=== PATIENT | male | born 1965 | race African-American/Black ===

== ENCOUNTER 2019-07-23 04:22 | Inpatient (IN) | payer SELFPAY ==
[2019-07-23] MEDS ORDERED: Albuterol/Ipratropium 3.0-0.5 MG/3 ML Neb Soln ONE ×2 (04:35→08:15)
[2019-07-23] MEDS ORDERED: Albuterol/Ipratropium 3.0-0.5 MG/3 ML Neb Soln NEB ONE (04:38)
--- NOTE | 2019-07-23 04:38 | EDM.PDOC ---
ED HPI GENERAL MEDICAL PROBLEM - General Chief Complaint: Respiratory Problem Stated Complaint: SHORTNESS OF BREATH Time Seen by Provider: 07/23/19 04:37 Source of Information: Reports: Patient - History of Present Illness INITIAL COMMENTS - FREE TEXT/NARRATIVE: HISTORY AND PHYSICAL: History of present illness: [Patient with hypertension and CHF arrives with shortness of breath with audible wheezing No fever nausea vomiting chills sweats, denies chest pain headache dizziness palpitation Review of systems: As per history of present illness and below otherwise all systems reviewed and negative. Past medical history: As per history of present illness and as reviewed below otherwise noncontributory. Surgical history: As per history of present illness and as reviewed below otherwise noncontributory. Social history: No reported history of drug or alcohol abuse. Family history: As per history of present illness and as reviewed below otherwise noncontributory. Physical exam: HEENT: Atraumatic, normocephalic, pupils reactive, negative for conjunctival pallor or scleral icterus, mucous membranes moist, throat clear, neck supple, nontender, trachea midline. LunBilateral wheeze throughouteath sounds equal bilaterally, chest nontender. Heart: S1S2, regular, negative for clicks, rubs, or JVD. Abdomen: Soft, nondistended, nontender. Negative for masses or hepatosplenomegaly. Negative for costovertebral tenderness. Pelvis: Stable nontender. Genitourinary: Deferred. Rectal: Deferred. Extremities: Atraumatic, negative for cords or calf pain. Neurovascular unremarkable. Neuro: Awake, alert, oriented. Cranial nerves II through XII unremarkable. Cerebellum unremarkable. Motor and sensory unremarkable throughout. Exam nonfocal. Diagnostics: [CBC CMP UA troponin EKG chest 1 view ] Therapeutics: [Normal saline DuoNeb Solu-Medrol 2 Lasix 40 mg IV Aspirin Lovenox Vasotec ] Impression: [Short of breath CHF Renal insufficiency Chronic history of baseline] Definitive disposition and diagnosis as appropriate pending reevaluation and review of above. - Related Data Allergies Allergy/AdvReac Type Severity Reaction Status Date / Time No Known Allergies Allergy Verified 07/23/19 04:32 Home Meds: Home Meds Aspirin 81 mg PO DAILY 07/23/19 [History] Furosemide 40 mg PO BID 07/23/19 [History] Lisinopril 5 mg PO DAILY 07/23/19 [History] Meloxicam 7.5 mg PO DAILY 07/23/19 [History] Metoprolol Succinate 50 mg PO DAILY 07/23/19 [History] Potassium Chloride 20 meq PO DAILY 07/23/19 [History] hydrALAZINE [Apresoline] 50 mg PO Q8H 07/23/19 [History] ED ROS GENERAL - Review of Systems Review Of Systems: See Below ED EXAM, GENERAL - Physical Exam Exam: See Below Course - Vital Signs Last Recorded V/S: Last Vital Signs Temp 97 F 07/23/19 04:25 Pulse 72 07/23/19 04:54 Resp 25 H 07/23/19 04:54 BP 161/90 H 07/23/19 05:00 Pulse Ox 99 07/23/19 04:54 - Orders/Labs/Meds Orders: Active Orders 24 hr Category Date Time Status EKG Documentation Completion [RC] STAT Care 07/23/19 04:37 Active RT Aerosol Therapy [RC] ASDIRECTED Care 07/23/19 04:38 Active CULTURE BLOOD [BC] Stat Lab 07/23/19 04:55 Received CULTURE BLOOD [BC] Stat Lab 07/23/19 05:07 Received UA RFX CHUCKIE AND CULT IF INDIC [URIN] Stat Lab 07/23/19 04:36 Ordered Sodium Chloride 0.9% [Normal Saline] 1,000 ml Med 07/23/19 04:45 Active IV STAT Blood Culture x2 Reflex Set [OM.PC] Stat Oth 07/23/19 04:37 Ordered Medication Orders Sodium Chloride (Normal Saline) 1,000 mls @ 125 mls/hr IV STAT ELEN Last Admin: 07/23/19 04:42 Dose: 125 mls/hr Labs: Laboratory Tests 07/23/19 07/23/19 07/23/19 Range/Units 04:32 04:32 04:32 WBC 6.45 (4.0-11.0) K/uL RBC 6.77 H (4.50-5.90) M/uL Hgb 18.9 H (13.0-17.0) g/dL Hct 57.6 H (38.0-50.0) % MCV 85.1 (80.0-98.0) fL MCH 27.9 (27.0-32.0) pg MCHC 32.8 (31.0-37.0) g/dL RDW Std Deviation 50.5 (28.0-62.0) fl RDW Coeff of Sylvester 17 H (11.0-15.0) % Plt Count 228 (150-400) K/uL MPV 10.30 (7.40-12.00) fL Neut % (Auto) 49.1 (48.0-80.0) % Lymph % (Auto) 29.3 (16.0-40.0) % [place] % (Auto) 15.7 H (0.0-15.0) % Eos % (Auto) 5.0 (0.0-7.0) % Baso % (Auto) 0.9 (0.0-1.5) % Neut # (Auto) 3.2 (1.4-5.7) K/uL Lymph # (Auto) 1.9 (0.6-2.4) K/uL [place] # (Auto) 1.0 H (0.0-0.8) K/uL Eos # (Auto) 0.3 (0.0-0.7) K/uL Baso # (Auto) 0.1 (0.0-0.1) K/uL Nucleated RBC % 0.5 /100WBC Nucleated RBCs # 0 K/uL Sodium 140 (136-148) mmol/L Potassium 4.7 (3.5-5.1) mmol/L Chloride 103 (98-107) mmol/L Carbon Dioxide 32.3 H (21.0-32.0) mmol/L BUN 22 H (7.0-18.0) mg/dL Creatinine 1.6 H (0.8-1.3) mg/dL Est Cr Clr Drug Dosing 52.78 mL/min Estimated GFR (MDRD) 45.3 ml/min Glucose 102 (74-106) mg/dL Calcium 8.7 (8.5-10.1) mg/dL Total Bilirubin 1.6 H (0.2-1.0) mg/dL AST 60 H (15-37) IU/L ALT 53 (14-63) IU/L Alkaline Phosphatase 55 (46-116) U/L Troponin I 0.335 H* (0.000-0.056) ng/mL B-Natriuretic Peptide 1197 H (<100) PG/ML Total Protein 6.7 (6.4-8.2) g/dL Albumin 3.7 (3.4-5.0) g/dL Globulin 3.0 (2.6-4.0) g/dL Albumin/Globulin Ratio 1.2 (0.9-1.6) Meds: Medications Generic Name Dose Route Start Last Admin Trade Name Emily PRN Reason Stop Dose Admin Sodium Chloride 1,000 mls @ 125 mls/hr 07/23/19 04:45 07/23/19 04:42 Normal Saline IV 125 mls/hr STAT ELEN Administration Discontinued Medications Generic Name Dose Route Start Last Admin Trade Name Joeq PRN Reason Stop Dose Admin Albuterol/Ipratropium 3 ml 07/23/19 04:38 07/23/19 04:42 Duoneb 3.0-0.5 Mg/3 Ml NEB 07/23/19 04:39 3 ml ONETIME ONE Administration Albuterol/Ipratropium Confirm 07/23/19 04:35 07/23/19 04:43 Duoneb 3.0-0.5 Mg/3 Ml Administered 07/23/19 04:36 Not Given Dose 3 ml .ROUTE .STK-MED ONE Aspirin 324 mg 07/23/19 05:19 Aspirin PO 07/23/19 05:20 ONETIME ONE Enalaprilat 0.625 mg 07/23/19 04:55 07/23/19 05:00 Vasotec Iv IVPUSH 07/23/19 04:56 0.625 mg NOW STA Administration Enalaprilat 0.625 mg 07/23/19 05:02 07/23/19 05:00 Vasotec Iv IVPUSH 07/23/19 05:03 Not Given NOW STA Enoxaparin Sodium 100 mg 07/23/19 05:19 Lovenox SUBCUT 07/23/19 05:20 ONETIME ONE Furosemide 40 mg 07/23/19 04:53 07/23/19 05:01 Lasix IVPUSH 07/23/19 04:54 40 mg NOW ONE Administration Lorazepam 1 mg 07/23/19 04:54 07/23/19 05:01 Ativan IVPUSH 07/23/19 04:55 1 mg ONETIME ONE Administration Methylprednisolone Sodium Succinate Confirm 07/23/19 04:36 07/23/19 04:43 Solu-Medrol Administered 07/23/19 04:37 Not Given Dose 125 mg .ROUTE .STK-MED ONE Methylprednisolone Sodium Succinate 125 mg 07/23/19 04:43 07/23/19 04:44 Solu-Medrol IVPUSH 07/23/19 04:44 125 mg ONETIME ONE Administration Methylprednisolone Sodium Succinate 125 mg 07/23/19 05:22 Solu-Medrol IVPUSH 07/23/19 05:23 ONETIME ONE Departure - Departure Time of Disposition: 05:28 Disposition: Admitted As Inpatient 65 Condition: Poor Clinical Impression: CHF (congestive heart failure), Elevated troponin, Renal insufficiency - Discharge Information Forms: ED Department Discharge - My Orders Last 24 Hours: My Active Orders 07/23/19 04:36 UA RFX CHUCKIE AND CULT IF INDIC [URIN] Stat 07/23/19 04:37 EKG Documentation Completion [RC] STAT Blood Culture x2 Reflex Set [OM.PC] Stat 07/23/19 04:38 RT Aerosol Therapy [RC] ASDIRECTED 07/23/19 04:45 Sodium Chloride 0.9% [Normal Saline] 1,000 ml IV STAT 07/23/19 04:55 CULTURE BLOOD [BC] Stat 07/23/19 05:07 CULTURE BLOOD [BC] Stat - Assessment/Plan Last 24 Hours: My Active Orders 07/23/19 04:36 UA RFX CHUCKIE AND CULT IF INDIC [URIN] Stat 07/23/19 04:37 EKG Documentation Completion [RC] STAT Blood Culture x2 Reflex Set [OM.PC] Stat 07/23/19 04:38 RT Aerosol Therapy [RC] ASDIRECTED 07/23/19 04:45 Sodium Chloride 0.9% [Normal Saline] 1,000 ml IV STAT 07/23/19 04:55 CULTURE BLOOD [BC] Stat 07/23/19 05:07 CULTURE BLOOD [BC] Stat
[2019-07-23] MEDS: methylPREDNISolone Sodium Succinate 125 MG/2 ML SDV ONE ×2 (04:42→04:43)
[2019-07-23] MEDS ORDERED: methylPREDNISolone Sodium Succinate 125 MG/2 ML SDV IVPUSH ONE ×2 (04:43→05:22)
[2019-07-23] MEDS ORDERED: Sodium Chloride 0.9% 1,000 ML IV SCH (04:45)
[2019-07-23] MEDS ORDERED: Furosemide 40 MG/4 ML VIAL IVPUSH ONE (04:53)
[2019-07-23] MEDS ORDERED: LORazepam 2 MG/ML SDV IVPUSH ONE (04:54)
[2019-07-23] MEDS ORDERED: Enalaprilat 1.25 MG/ML SDV IVPUSH STA ×2 (04:55→05:02)
[2019-07-23 05:10] LABS: CARBON DIOXIDE,CO2 32.3 mmol/L (21.0-32.0); POTASSIUM,K 4.7 mmol/L (3.5-5.1)
[2019-07-23] MEDS ORDERED: Aspirin 81 MG Tab.Chew PO ONE (05:19)
[2019-07-23] MEDS ORDERED: Enoxaparin 100 MG/1 ML Syringe SUBCUT ONE (05:19)
--- NOTE | 2019-07-23 05:21 | CR ---
INDICATION: Pain and shortness of breath TECHNIQUE: Chest 1 view COMPARISON: None FINDINGS: Cardiovascular and mediastinum: Cardiomegaly with mild aortic tortuosity. Pulmonary vascular distension. Calcified right paratracheal lymph nodes. Lungs and pleural spaces: Lungs are clear. No sign of infiltrate or mass. No sign of pleural effusion. No pneumothorax. Bones and soft tissues: No significant findings. IMPRESSION: Cardiomegaly with pulmonary cephalization without focal consolidation. Dictated by Joshua Maza MD @ Jul 23 2019 5:18AM Signed by Dr. Joshua Maza @ Jul 23 2019 5:19AM
[2019-07-23] MEDS ORDERED: Albuterol/Ipratropium 3.0-0.5 MG/3 ML Neb Soln NEB STA (08:08)
[2019-07-23] MEDS: Furosemide 40 MG/4 ML VIAL IVPUSH SCH ×2 (09:05→20:53)
--- NOTE | 2019-07-23 11:05 | PCM.HP.2 ---
H&P History of Present Illness - General Date of Service: 07/23/19 Admit Problem/Dx: Admission Diagnosis/Problem Admission Diagnosis/Problem CHF, Congestive heart failure - History of Present Illness Initial Comments - Free Text/Narative: 53 y/o male with history of CHF, hypertension who presented to the ER complaining of shortness of breath and anxiety. His chest xray showed vascular congestion and cardiomegaly. He was given lasix IV once and Ativan IV once in the ER for anxiety. In addition, initial troponin was mildly elevated 0.3. Patient denying and chest pain. EKG did not show any ST changes. When I saw the patient in the morning, I was informed that the patient was obtunded needing sternal rub to wake up. I evaluated the patient and he did seemed obtunded. He was on NC 2 L with sats in high 90's. He had a systolic murmur was well. He denied any illegal drug use. Does not smoke. No alcohol. He stated that he was recently seen in [place] at [facility] about 2 weeks ago for similar complaint and was later discharged home on lasix and other meds. He states he has been taking his meds as indicated. Initially, the patient was reluctant to be transferred to the ICU unit, however, he later agreed to get transferred to the ICU unit. - Related Data Allergies/Adverse Reactions: Allergies Allergy/AdvReac Type Severity Reaction Status Date / Time No Known Allergies Allergy Verified 07/23/19 04:32 Home Medications: Home Meds Aspirin 81 mg PO DAILY 07/23/19 [History] Furosemide 40 mg PO BID 07/23/19 [History] Lisinopril 5 mg PO DAILY 07/23/19 [History] Meloxicam 7.5 mg PO DAILY 07/23/19 [History] Metoprolol Succinate 50 mg PO DAILY 07/23/19 [History] Potassium Chloride 20 meq PO DAILY 07/23/19 [History] hydrALAZINE [Apresoline] 50 mg PO Q8H 07/23/19 [History] Past Medical History HEENT History: Reports: None Cardiovascular History: Reports: Heart Failure, Hypertension, Other (See Below) Other Cardiovascular History: Aortic Valve Leak Respiratory History: Reports: None Gastrointestinal History: Reports: None Genitourinary History: Reports: None Musculoskeletal History: Reports: None Neurological History: Reports: None Psychiatric History: Reports: None Endocrine/Metabolic History: Reports: None 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 Exam - Exam Exam: See Below - Vital Signs Vital Signs: Last Vital Signs Temp 36.8 C 07/23/19 06:10 Pulse 70 07/23/19 08:15 Resp 24 H 07/23/19 08:15 BP 179/93 H 07/23/19 06:10 Pulse Ox 95 07/23/19 08:15 Weight: 104.325 kg - Exam General: Cooperative, Sedated HEENT: Conjunctiva Clear, Other (dry oral mucosa) Lungs: Other (expiratory wheezing bilatereally with crackles. Can hear systolic murmur.) Cardiovascular: Regular Rate, Regular Rhythm, Systolic Murmur GI/Abdominal Exam: Soft, Non-Tender, No Distention Extremities: Other (2+ pitting edema up to knees.) Skin: Warm, Dry - Patient Data Lab Results Last 24 hrs: Laboratory Results - last 24 hr 07/23/19 07/23/19 07/23/19 Range/Units 04:32 04:32 04:32 WBC 6.45 (4.0-11.0) K/uL RBC 6.77 H (4.50-5.90) M/uL Hgb 18.9 H (13.0-17.0) g/dL Hct 57.6 H (38.0-50.0) % MCV 85.1 (80.0-98.0) fL MCH 27.9 (27.0-32.0) pg MCHC 32.8 (31.0-37.0) g/dL RDW Std Deviation 50.5 (28.0-62.0) fl RDW Coeff of Sylvester 17 H (11.0-15.0) % Plt Count 228 (150-400) K/uL MPV 10.30 (7.40-12.00) fL Neut % (Auto) 49.1 (48.0-80.0) % Lymph % (Auto) 29.3 (16.0-40.0) % [place] % (Auto) 15.7 H (0.0-15.0) % Eos % (Auto) 5.0 (0.0-7.0) % Baso % (Auto) 0.9 (0.0-1.5) % Neut # (Auto) 3.2 (1.4-5.7) K/uL Lymph # (Auto) 1.9 (0.6-2.4) K/uL [place] # (Auto) 1.0 H (0.0-0.8) K/uL Eos # (Auto) 0.3 (0.0-0.7) K/uL Baso # (Auto) 0.1 (0.0-0.1) K/uL Nucleated RBC % 0.5 /100WBC Nucleated RBCs # 0 K/uL ABG pH (7.35-7.45) ABG pCO2 (35-45) mmHG ABG pO2 (75-100) mmHG ABG HCO3 (22-26) mEq/L ABG Total CO2 ABG Base Excess (-2.0-2.0) Sodium 140 (136-148) mmol/L Potassium 4.7 (3.5-5.1) mmol/L Chloride 103 (98-107) mmol/L Carbon Dioxide 32.3 H (21.0-32.0) mmol/L BUN 22 H (7.0-18.0) mg/dL Creatinine 1.6 H (0.8-1.3) mg/dL Est Cr Clr Drug Dosing 52.78 mL/min Estimated GFR (MDRD) 45.3 ml/min Glucose 102 (74-106) mg/dL Calcium 8.7 (8.5-10.1) mg/dL Total Bilirubin 1.6 H (0.2-1.0) mg/dL AST 60 H (15-37) IU/L ALT 53 (14-63) IU/L Alkaline Phosphatase 55 (46-116) U/L Troponin I 0.335 H* (0.000-0.056) ng/mL B-Natriuretic Peptide 1197 H (<100) PG/ML Total Protein 6.7 (6.4-8.2) g/dL Albumin 3.7 (3.4-5.0) g/dL Globulin 3.0 (2.6-4.0) g/dL Albumin/Globulin Ratio 1.2 (0.9-1.6) Urine Color Urine Appearance Urine pH (5.0-8.0) Ur Specific [place] (1.001-1.035) Urine Protein (NEGATIVE) mg/dL Urine Glucose (UA) (NEGATIVE) mg/dL Urine Ketones (NEGATIVE) mg/dL Urine Occult Blood (NEGATIVE) Urine Nitrite (NEGATIVE) Urine Bilirubin (NEGATIVE) Urine Urobilinogen (<2.0) EU/dL Ur Leukocyte Esterase (NEGATIVE) 07/23/19 07/23/19 07/23/19 Range/Units 05:35 08:34 08:47 WBC (4.0-11.0) K/uL RBC (4.50-5.90) M/uL Hgb (13.0-17.0) g/dL Hct (38.0-50.0) % MCV (80.0-98.0) fL MCH (27.0-32.0) pg MCHC (31.0-37.0) g/dL RDW Std Deviation (28.0-62.0) fl RDW Coeff of Sylvester (11.0-15.0) % Plt Count (150-400) K/uL MPV (7.40-12.00) fL Neut % (Auto) (48.0-80.0) % Lymph % (Auto) (16.0-40.0) % [place] % (Auto) (0.0-15.0) % Eos % (Auto) (0.0-7.0) % Baso % (Auto) (0.0-1.5) % Neut # (Auto) (1.4-5.7) K/uL Lymph # (Auto) (0.6-2.4) K/uL [place] # (Auto) (0.0-0.8) K/uL Eos # (Auto) (0.0-0.7) K/uL Baso # (Auto) (0.0-0.1) K/uL Nucleated RBC % /100WBC Nucleated RBCs # K/uL ABG pH 7.388 (7.35-7.45) ABG pCO2 53 H (35-45) mmHG ABG pO2 27 L* (75-100) mmHG ABG HCO3 32 H (22-26) mEq/L ABG Total CO2 27.1 ABG Base Excess 4.7 H (-2.0-2.0) Sodium (136-148) mmol/L Potassium (3.5-5.1) mmol/L Chloride (98-107) mmol/L Carbon Dioxide (21.0-32.0) mmol/L BUN (7.0-18.0) mg/dL Creatinine (0.8-1.3) mg/dL Est Cr Clr Drug Dosing mL/min Estimated GFR (MDRD) ml/min Glucose (74-106) mg/dL Calcium (8.5-10.1) mg/dL Total Bilirubin (0.2-1.0) mg/dL AST (15-37) IU/L ALT (14-63) IU/L Alkaline Phosphatase (46-116) U/L Troponin I 0.336 H* (0.000-0.056) ng/mL B-Natriuretic Peptide (<100) PG/ML Total Protein (6.4-8.2) g/dL Albumin (3.4-5.0) g/dL Globulin (2.6-4.0) g/dL Albumin/Globulin Ratio (0.9-1.6) Urine Color YELLOW Urine Appearance CLEAR Urine pH 6.5 (5.0-8.0) Ur Specific [place] 1.010 (1.001-1.035) Urine Protein NEGATIVE (NEGATIVE) mg/dL Urine Glucose (UA) NEGATIVE (NEGATIVE) mg/dL Urine Ketones NEGATIVE (NEGATIVE) mg/dL Urine Occult Blood NEGATIVE (NEGATIVE) Urine Nitrite NEGATIVE (NEGATIVE) Urine Bilirubin NEGATIVE (NEGATIVE) Urine Urobilinogen 0.2 (<2.0) EU/dL Ur Leukocyte Esterase NEGATIVE (NEGATIVE) Result Diagrams: 07/23/19 04:32 07/23/19 04:32 Problem List Initiated/Reviewed/Updated: Yes Orders Last 24hrs: Active Orders 24 hr Category Date Time Status Admission Status [Patient Status] [ADT] Routine ADT 07/23/19 08:19 Active Bedrest Bathroom Privileges [RC] ASDIRECTED Care 07/23/19 08:15 Active Daily Weight [Height and Weight] [RC] DAILY Care 07/23/19 08:27 Active EKG Documentation Completion [RC] STAT Care 07/23/19 08:26 Active Intake and Output Strict [RC] Q12H Care 07/23/19 08:28 Active Oxygen Therapy [RC] PRN Care 07/23/19 08:15 Active RT Aerosol Therapy [RC] ASDIRECTED Care 07/23/19 04:38 Active Supplemental O2 [Oxygen Therapy] [RC] ASDIRECTED Care 07/23/19 07:49 Active Telemetry Monitoring [Cardiac Monitoring] [RC] Q8H Care 07/23/19 05:50 Active VTE/DVT Education [RC] PER UNIT ROUTINE Care 07/23/19 08:15 Active Vital Signs [RC] Q4H Care 07/23/19 08:15 Active Fluid Restriction [DIET] Diet 07/23/19 Lunch Active Heart Healthy Diet [DIET] Diet 07/23/19 Breakfast Active CULTURE BLOOD [BC] Stat Lab 07/23/19 04:55 Received CULTURE BLOOD [BC] Stat Lab 07/23/19 05:07 Received TROPONIN I [CHEM] Q6H Lab 07/23/19 10:40 Received TROPONIN I [CHEM] Q6H Lab 07/23/19 16:00 Ordered TROPONIN I [CHEM] Q6H Lab 07/23/19 22:00 Ordered Furosemide [Lasix] Med 07/23/19 09:00 Active 40 mg IVPUSH BID Blood Culture x2 Reflex Set [OM.PC] Stat Oth 07/23/19 04:37 Ordered Pulse Oximetry Continuous Monitoring [OM.PC] Routine Oth 07/23/19 07:50 Ordered Resuscitation Status Routine Resus Stat 07/23/19 08:15 Ordered Medication Orders Furosemide (Lasix) 40 mg IVPUSH BID ELEN Last Admin: 07/23/19 09:05 Dose: 40 mg Assessment/Plan Comment:: A: 1. Acute CHF exacerbation 2. Elevated troponin likely due to above 3. Acute hypoxemic respiratory failure 4. Acute metabolic encephalopathy 5. Hypertension P: Not sure what could be causing his encephalopathy. Likely secondary to Ativan dose received in the ER. ABG showed hypoxemia of 27. CO2 low 50's. Will need to repeat ABG tomorrow. Will continue to diurese with lasix 40 mg IV BID for now. Strict I/O and daily weights, fluid restriction. Will continue to trend troponins. Currently, trending down. Suspect elevated troponins secondary to acute on chronic CHF exacerbation. Will get outside medical records from [facility] in [place].
--- NOTE | 2019-07-23 13:43 | CT ---
CT abdomen Technique: Multiple axial sections were obtained from above the dome of the diaphragm inferiorly to the iliac crests. Intravenous contrast was not utilized. Oral contrast also not utilized. Comparison: No prior abdominal imaging. Findings: Visualized lung bases show nothing acute. Noncontrast appearance of the liver shows a small peripheral calcification anteriorly. No additional abnormality is appreciated within the liver. Spleen shows calcifications. No splenomegaly is seen. Adrenal glands show no nodule. Pancreas shows no discrete abnormality. Gallbladder contains no calcified gallstones. Kidneys show no abnormal calcifications or hydronephrosis. Aorta shows no aneurysm. No retroperitoneal adenopathy is seen. No mesenteric abnormalities are appreciated. Bone window settings were reviewed which appear within normal limits for the patient's age. Impression: 1. Calcified granulomas within the spleen as well as anteriorly within the liver. 2. Nothing acute is seen on noncontrast CT study of the abdomen. Diagnostic code #2 MTDD
--- NOTE | 2019-07-23 13:49 | CT ---
CT chest Technique: Multiple axial sections through the chest were. Intravenous contrast was not utilized. Comparison: No prior chest imaging. Findings: Calcified lymph node is noted within the right paratracheal region and within the right hilar region. No adenopathy is seen. Minimal coronary artery calcification is seen. Heart size at the upper limits of normal. No pericardial thickening is seen. No axillary adenopathy is identified. Lungs are clear with no acute parenchymal change. There is an incidental calcified granuloma within the right upper lung. No pleural effusions or pneumothorax is seen. Motion artifact is seen. Within this limitation, no discrete rib fracture is appreciated. No definite acute abnormality is seen within the thoracic spine. Impression: 1. Motion artifact. 2. Calcified lymph nodes compatible with previous granulomatous exposure. Small calcified granuloma within the right upper lung. 3. Other findings believed to be incidental. Nothing acute is appreciated on noncontrast chest CT. Diagnostic code #2 MTDD
--- NOTE | 2019-07-23 14:59 | PN ---
THC Physician - Brief Progress [id number]/24/2019 14:21[facility] Ariadne Barnes, RAINE [facility] - MWN JULISSAMIMI ROCA Date of Service 07/23/2019 14:21HPI/Events of Note eICU Admit NotePt is a 53 yo M presenting to the ED with c/o EVANGELIST and Anxiety. PMH includes CH F and HTN. In the ED he was given Lasix and Nebs/Solumedrol with noted improvement. He was then subse quently given a dose of Ativan for his Anxiety and started having apenic spells, so he was admitted t o the ICU. He also underwent a CT of the Abdomen and Chest that both displayed no acute findings or s ignificant abnormalities. He is currently resting comfortably in bed in NAD with stable VS on 3 L NC. He is undergoing a 2D Echo at the moment and there is concern that he has a valvular issue. Pending the final results, we will possibly f/u with Cardio. Case was discussed with his bedside nurse Darron church. eICU Recommendations:1) Continue Diuresis2) Consider BIPAP if he decompensates again3) Trend tro ps4) PRN Electrolyte replacement5) Await final 2D Echo read6) Possible Cardio Consult if valvular iss ues7) GI/DVT prophylaxisThank you for allowing us to participate in the care of your patient.Interven tions Major-Hypoxemia - evaluation and [id number] therapies (e.g. VTE, beta cammie, etc.), Communication with other healthcare providers and/or family, Hypervolemia - evaluati on and management
[2019-07-23] MEDS ORDERED: Magnesium Sulfate/Water 2 GM in Premix Bag 1 BAG IV ONE (17:29)
[2019-07-23] MEDS ORDERED: Enoxaparin 40 MG/0.4 ML Syringe SUBCUT SCH (18:15)
[2019-07-24] MEDS ORDERED: Albuterol 0.083% 2.5 MG/3 ML Neb Soln NEB PRN (00:25)
[2019-07-24] MEDS: Albuterol/Ipratropium 3.0-0.5 MG/3 ML Neb Soln NEB SCH ×7 (00:35→23:23)
[2019-07-24 06:28] LABS: POTASSIUM,K 4.8 mmol/L (3.5-5.1)
[2019-07-24] MEDS: Aspirin 81 MG Tab.Chew PO SCH (08:52)
[2019-07-24] MEDS: Furosemide 40 MG/4 ML VIAL IVPUSH SCH ×2 (08:52→21:34)
[2019-07-24] MEDS ORDERED: methylPREDNISolone Sodium Succinate 125 MG/2 ML SDV IVPUSH SCH (09:00)
[2019-07-24] MEDS: hydrALAZINE 25 MG Tab PO SCH ×3 (09:04→23:23)
--- NOTE | 2019-07-24 11:24 | PN ---
THC Physician - Brief Progress [id number]/25/2019 11:22[facility] Ariadne waller [place] - CJ (JEOVANNY) - MIMI POOLE JRDate of Service 07/24/2019 11:22HPI/Events of Note eICU follow-up notePatient had significantly improved from yesterdayHe is sitting in chair, a ppears comfortable without acute distressHemodynamically stable, SPO2 95% on room airCase [facility]-patient status is changed to MedSurg with plans to transfer out of ICU today.In terventions Minor-Communication with other healthcare providers and/or family
--- NOTE | 2019-07-24 14:28 | PCM.PN ---
<Branden Self - Last Filed: 07/24/19 14:20> - General Info Date of Service: 07/24/19 Subjective Update: No acute events overnight. Afebrile. Denies chest pain, dyspnea. States he slept well overnight. - Patient Data Vitals - Most Recent: Last Vital Signs Temp 36.4 C 07/24/19 08:00 Pulse 76 07/24/19 11:00 Resp 15 07/24/19 11:00 BP 159/66 H 07/24/19 11:00 Pulse Ox 94 L 07/24/19 11:00 Weight - Most Recent: 103.9 kg I&O - Last 24 Hours: Intake & Output 07/23/19 07/24/19 07/24/19 22:59 06:59 14:59 Intake Total 900 850 Output Total 2225 1500 Balance -1325 -650 Lab Results Last 24 Hours: Laboratory Results - last 24 hr 07/23/19 07/23/19 07/24/19 Range/Units 16:09 22:12 05:55 WBC 13.78 H (4.0-11.0) K/uL RBC 6.33 H (4.50-5.90) M/uL Hgb 17.5 H (13.0-17.0) g/dL Hct 53.3 H (38.0-50.0) % MCV 84.2 (80.0-98.0) fL MCH 27.6 (27.0-32.0) pg MCHC 32.8 (31.0-37.0) g/dL RDW Std Deviation 49.4 (28.0-62.0) fl RDW Coeff of Sylvester 16 H (11.0-15.0) % Plt Count 238 (150-400) K/uL MPV 10.60 (7.40-12.00) fL Neut % (Auto) 80.4 H (48.0-80.0) % Lymph % (Auto) 9.1 L (16.0-40.0) % Barnes % (Auto) 10.4 (0.0-15.0) % Eos % (Auto) 0.0 (0.0-7.0) % Baso % (Auto) 0.1 (0.0-1.5) % Neut # (Auto) 11.1 H (1.4-5.7) K/uL Lymph # (Auto) 1.3 (0.6-2.4) K/uL Barnes # (Auto) 1.4 H (0.0-0.8) K/uL Eos # (Auto) 0.0 (0.0-0.7) K/uL Baso # (Auto) 0.0 (0.0-0.1) K/uL Nucleated RBC % 0.0 /100WBC Nucleated RBCs # 0 K/uL Sodium (136-148) mmol/L Potassium (3.5-5.1) mmol/L Chloride (98-107) mmol/L Carbon Dioxide (21.0-32.0) mmol/L BUN (7.0-18.0) mg/dL Creatinine (0.8-1.3) mg/dL Est Cr Clr Drug Dosing mL/min Estimated GFR (MDRD) ml/min Glucose (74-106) mg/dL Calcium (8.5-10.1) mg/dL Magnesium (1.8-2.4) mg/dL Total Bilirubin (0.2-1.0) mg/dL AST (15-37) IU/L ALT (14-63) IU/L Alkaline Phosphatase (46-116) U/L Troponin I 0.264 H* 0.205 H* (0.000-0.056) ng/mL B-Natriuretic Peptide (<100) PG/ML Total Protein (6.4-8.2) g/dL Albumin (3.4-5.0) g/dL Globulin (2.6-4.0) g/dL Albumin/Globulin Ratio (0.9-1.6) Triglycerides (0-200) mg/dL Cholesterol (50-200) mg/dL LDL Cholesterol, Calc (60-180) mg/dL VLDL Cholesterol (5-55) mg/dL HDL Cholesterol (40-60) mg/dL Cholesterol/HDL Ratio (3.3-6.0) TSH 3rd Generation (0.36-3.74) uIU/mL 07/24/19 07/24/19 07/24/19 Range/Units 05:55 05:55 05:55 WBC (4.0-11.0) K/uL RBC (4.50-5.90) M/uL Hgb (13.0-17.0) g/dL Hct (38.0-50.0) % MCV (80.0-98.0) fL MCH (27.0-32.0) pg MCHC (31.0-37.0) g/dL RDW Std Deviation (28.0-62.0) fl RDW Coeff of Sylvester (11.0-15.0) % Plt Count (150-400) K/uL MPV (7.40-12.00) fL Neut % (Auto) (48.0-80.0) % Lymph % (Auto) (16.0-40.0) % Barnes % (Auto) (0.0-15.0) % Eos % (Auto) (0.0-7.0) % Baso % (Auto) (0.0-1.5) % Neut # (Auto) (1.4-5.7) K/uL Lymph # (Auto) (0.6-2.4) K/uL Barnes # (Auto) (0.0-0.8) K/uL Eos # (Auto) (0.0-0.7) K/uL Baso # (Auto) (0.0-0.1) K/uL Nucleated RBC % /100WBC Nucleated RBCs # K/uL Sodium 141 (136-148) mmol/L Potassium 4.8 (3.5-5.1) mmol/L Chloride 103 (98-107) mmol/L Carbon Dioxide 32.0 (21.0-32.0) mmol/L BUN 24 H (7.0-18.0) mg/dL Creatinine 1.5 H (0.8-1.3) mg/dL Est Cr Clr Drug Dosing 56.30 mL/min Estimated GFR (MDRD) 59.1 ml/min Glucose 118 H (74-106) mg/dL Calcium 8.5 (8.5-10.1) mg/dL Magnesium 2.2 (1.8-2.4) mg/dL Total Bilirubin 1.1 H (0.2-1.0) mg/dL AST 38 H (15-37) IU/L ALT 42 (14-63) IU/L Alkaline Phosphatase 49 (46-116) U/L Troponin I 0.212 H* (0.000-0.056) ng/mL B-Natriuretic Peptide 706 H (<100) PG/ML Total Protein 6.0 L (6.4-8.2) g/dL Albumin 3.1 L (3.4-5.0) g/dL Globulin 2.9 (2.6-4.0) g/dL Albumin/Globulin Ratio 1.1 (0.9-1.6) Triglycerides (0-200) mg/dL Cholesterol (50-200) mg/dL LDL Cholesterol, Calc (60-180) mg/dL VLDL Cholesterol (5-55) mg/dL HDL Cholesterol (40-60) mg/dL Cholesterol/HDL Ratio (3.3-6.0) TSH 3rd Generation 0.55 (0.36-3.74) uIU/mL 07/24/19 Range/Units 05:55 WBC (4.0-11.0) K/uL RBC (4.50-5.90) M/uL Hgb (13.0-17.0) g/dL Hct (38.0-50.0) % MCV (80.0-98.0) fL MCH (27.0-32.0) pg MCHC (31.0-37.0) g/dL RDW Std Deviation (28.0-62.0) fl RDW Coeff of Sylvester (11.0-15.0) % Plt Count (150-400) K/uL MPV (7.40-12.00) fL Neut % (Auto) (48.0-80.0) % Lymph % (Auto) (16.0-40.0) % Barnes % (Auto) (0.0-15.0) % Eos % (Auto) (0.0-7.0) % Baso % (Auto) (0.0-1.5) % Neut # (Auto) (1.4-5.7) K/uL Lymph # (Auto) (0.6-2.4) K/uL Barnes # (Auto) (0.0-0.8) K/uL Eos # (Auto) (0.0-0.7) K/uL Baso # (Auto) (0.0-0.1) K/uL Nucleated RBC % /100WBC Nucleated RBCs # K/uL Sodium (136-148) mmol/L Potassium (3.5-5.1) mmol/L Chloride (98-107) mmol/L Carbon Dioxide (21.0-32.0) mmol/L BUN (7.0-18.0) mg/dL Creatinine (0.8-1.3) mg/dL Est Cr Clr Drug Dosing mL/min Estimated GFR (MDRD) ml/min Glucose (74-106) mg/dL Calcium (8.5-10.1) mg/dL Magnesium (1.8-2.4) mg/dL Total Bilirubin (0.2-1.0) mg/dL AST (15-37) IU/L ALT (14-63) IU/L Alkaline Phosphatase (46-116) U/L Troponin I (0.000-0.056) ng/mL B-Natriuretic Peptide (<100) PG/ML Total Protein (6.4-8.2) g/dL Albumin (3.4-5.0) g/dL Globulin (2.6-4.0) g/dL Albumin/Globulin Ratio (0.9-1.6) Triglycerides 69 (0-200) mg/dL Cholesterol 130 (50-200) mg/dL LDL Cholesterol, Calc 80 (60-180) mg/dL VLDL Cholesterol 13 (5-55) mg/dL HDL Cholesterol 36 L (40-60) mg/dL Cholesterol/HDL Ratio 3.6 (3.3-6.0) TSH 3rd Generation (0.36-3.74) uIU/mL Jamin Results Last 24 Hours: Microbiology 07/23/19 05:07 Aerobic Blood Culture - Preliminary Blood - Venous - Lab Draw NO GROWTH AFTER 1 DAY Anaerobic Blood Culture - Preliminary NO GROWTH AFTER 1 DAY 07/23/19 04:55 Aerobic Blood Culture - Preliminary Blood - Venous NO GROWTH AFTER 1 DAY Anaerobic Blood Culture - Preliminary NO GROWTH AFTER 1 DAY Med Orders - Current: Current Medications Albuterol (Proventil Neb Soln) 2.5 mg NEB Q2H PRN PRN Reason: Dyspnea Albuterol/Ipratropium (Duoneb 3.0-0.5 Mg/3 Ml) 3 ml NEB Q4HRRT [facility] Last Admin: 07/24/19 13:32 Dose: 3 ml Aspirin (Aspirin) 81 mg PO DAILY [facility] Last Admin: 07/24/19 08:52 Dose: 81 mg Furosemide (Lasix) 40 mg IVPUSH BID [facility] [place] Last Admin: 07/24/19 08:52 Dose: 40 mg Heparin Sodium (Porcine) (Heparin Sodium) 5,000 units SUBCUT Q8H [facility] Hydralazine HCl (Apresoline) 50 mg PO Q8H [facility] Last Admin: 07/24/19 09:04 Dose: 50 mg Discontinued Medications Albuterol/Ipratropium (Duoneb 3.0-0.5 Mg/3 Ml) 3 ml NEB ONETIME ONE Stop: 07/23/19 04:39 Last Admin: 07/23/19 04:42 Dose: 3 ml Albuterol/Ipratropium (Duoneb 3.0-0.5 Mg/3 Ml) Confirm Administered Dose 3 ml .ROUTE .STK-MED ONE Stop: 07/23/19 04:36 Last Admin: 07/23/19 04:43 Dose: Not Given Albuterol/Ipratropium (Duoneb 3.0-0.5 Mg/3 Ml) 3 ml NEB ONETIME STA Stop: 07/23/19 08:09 Last Admin: 07/23/19 08:19 Dose: 3 ml Albuterol/Ipratropium (Duoneb 3.0-0.5 Mg/3 Ml) Confirm Administered Dose 3 ml .ROUTE .STK-MED ONE Stop: 07/23/19 08:16 Last Admin: 07/23/19 08:19 Dose: Not Given Aspirin (Aspirin) 324 mg PO ONETIME ONE Stop: 07/23/19 05:20 Last Admin: 07/23/19 05:29 Dose: 324 mg Enalaprilat (Vasotec Iv) 0.625 mg IVPUSH NOW STA Stop: 07/23/19 04:56 Last Admin: 07/23/19 05:00 Dose: 0.625 mg Enalaprilat (Vasotec Iv) 0.625 mg IVPUSH NOW STA Stop: 07/23/19 05:03 Last Admin: 07/23/19 05:00 Dose: Not Given Enoxaparin Sodium (Lovenox) 100 mg SUBCUT ONETIME ONE Stop: 07/23/19 05:20 Last Admin: 07/23/19 05:30 Dose: 100 mg Enoxaparin Sodium (Lovenox) 40 mg SUBCUT Q24H [facility] Last Admin: 07/23/19 18:40 Dose: 40 mg Furosemide (Lasix) 40 mg IVPUSH NOW ONE Stop: 07/23/19 04:54 Last Admin: 07/23/19 05:01 Dose: 40 mg Sodium Chloride (Normal Saline) 1,000 mls @ 125 mls/hr IV STAT [facility] Last Admin: 07/23/19 04:42 Dose: 125 mls/hr Magnesium Sulfate 2 gm/ Premix 50 mls @ 25 mls/hr IV ONETIME ONE Stop: 07/23/19 19:28 Last Admin: 07/23/19 17:53 Dose: 25 mls/hr Lorazepam (Ativan) 1 mg IVPUSH ONETIME ONE Stop: 07/23/19 04:55 Last Admin: 07/23/19 05:01 Dose: 1 mg Methylprednisolone Sodium Succinate (Solu-Medrol) Confirm Administered Dose 125 mg .ROUTE .STK-MED ONE Stop: 07/23/19 04:37 Last Admin: 07/23/19 04:43 Dose: Not Given Methylprednisolone Sodium Succinate (Solu-Medrol) 125 mg IVPUSH ONETIME ONE Stop: 07/23/19 04:44 Last Admin: 07/23/19 04:44 Dose: 125 mg Methylprednisolone Sodium Succinate (Solu-Medrol) 125 mg IVPUSH ONETIME ONE Stop: 07/23/19 05:23 Last Admin: 07/23/19 05:30 Dose: 125 mg Methylprednisolone Sodium Succinate (Solu-Medrol) 125 mg IVPUSH DAILY [facility] Last Admin: 07/24/19 09:05 Dose: 125 mg - Exam General: Alert, Oriented, Cooperative, No Acute Distress Lungs: Other (bilateral airflow, some mild bibasilar crackles with mild expiratory wheezing.) Cardiovascular: Other (systolic murmur) GI/Abdominal Exam: Normal Bowel Sounds, Soft, Non-Tender, No Distention Extremities: Pedal Edema Skin: Warm, Dry - Problem List Review Problem List Initiated/Reviewed/Updated: Yes - My Orders Last 24 Hours: My Active Orders 07/23/19 18:14 RT BiPAP/CPAP [RC] BEDTIME 07/24/19 09:00 Aspirin 81 mg PO DAILY hydrALAZINE [Apresoline] 50 mg PO Q8H 07/24/19 11:00 Transfer Patient (Change bed) [ADT] Routine 07/24/19 11:02 Ambulate [RC] PER UNIT ROUTINE Consult to P[employer]er Liquid [CONS] Routine 07/24/19 11:12 Telemetry Monitoring [Cardiac Monitoring] [RC] Q8H 07/24/19 11:14 Communication Order [RC] PRN 07/25/19 05:11 CBC WITH AUTO DIFF [HEME] AM COMPREHENSIVE METABOLIC PN,CMP [CHEM] AM 07/26/19 05:11 CBC WITH AUTO DIFF [HEME] AM COMPREHENSIVE METABOLIC PN,CMP [CHEM] AM LIPID PANEL [CHEM] AM - Plan Plan:: A: 1. Acute CHF exacerbation 2. Elevated troponin likely due to demand ischemia due to above, trending down 3. Acute hypoxemic respiratory failure, improving 4. Hypertension 5. FRENCH, improving 6. Elevated liver enzymes, stable likely due to CHF P: Will continue to diurese with Lasix 40 mg IV BID. Troponins trending down. Denies chest pain. Will try to wean off supplemental oxygen. Suspect will improve with further diureses. Will start home dose hydralazine for BP. Will plan to DC tomorrow with cardiology follow-up as outpatient. Will need outpatient sleep study for suspected sleep apnea. Dispo: like dc tomorrow. <Jyoti Land - Last Filed: 07/24/19 17:36> - Patient Data Vitals - Most Recent: Last Vital Signs Temp 36.4 C 07/24/19 08:00 Pulse 76 07/24/19 11:00 Resp 15 07/24/19 11:00 BP 159/66 H 07/24/19 11:00 Pulse Ox 94 L 07/24/19 11:00 I&O - Last 24 Hours: Intake & Output 07/24/19 07/24/19 07/24/19 06:59 14:59 22:59 Intake Total 850 Output Total 1500 Balance -650 Lab Results Last 24 Hours: Laboratory Results - last 24 hr 07/23/19 07/23/19 07/24/19 Range/Units 16:09 22:12 05:55 WBC 13.78 H (4.0-11.0) K/uL RBC 6.33 H (4.50-5.90) M/uL Hgb 17.5 H (13.0-17.0) g/dL Hct 53.3 H (38.0-50.0) % MCV 84.2 (80.0-98.0) fL MCH 27.6 (27.0-32.0) pg MCHC 32.8 (31.0-37.0) g/dL RDW Std Deviation 49.4 (28.0-62.0) fl RDW Coeff of Sylvester 16 H (11.0-15.0) % Plt Count 238 (150-400) K/uL MPV 10.60 (7.40-12.00) fL Neut % (Auto) 80.4 H (48.0-80.0) % Lymph % (Auto) 9.1 L (16.0-40.0) % Barnes % (Auto) 10.4 (0.0-15.0) % Eos % (Auto) 0.0 (0.0-7.0) % Baso % (Auto) 0.1 (0.0-1.5) % Neut # (Auto) 11.1 H (1.4-5.7) K/uL Lymph # (Auto) 1.3 (0.6-2.4) K/uL Barnes # (Auto) 1.4 H (0.0-0.8) K/uL Eos # (Auto) 0.0 (0.0-0.7) K/uL Baso # (Auto) 0.0 (0.0-0.1) K/uL Nucleated RBC % 0.0 /100WBC Nucleated RBCs # 0 K/uL Sodium (136-148) mmol/L Potassium (3.5-5.1) mmol/L Chloride (98-107) mmol/L Carbon Dioxide (21.0-32.0) mmol/L BUN (7.0-18.0) mg/dL Creatinine (0.8-1.3) mg/dL Est Cr Clr Drug Dosing mL/min Estimated GFR (MDRD) ml/min Glucose (74-106) mg/dL Calcium (8.5-10.1) mg/dL Magnesium (1.8-2.4) mg/dL Total Bilirubin (0.2-1.0) mg/dL AST (15-37) IU/L ALT (14-63) IU/L Alkaline Phosphatase (46-116) U/L Troponin I 0.264 H* 0.205 H* (0.000-0.056) ng/mL B-Natriuretic Peptide (<100) PG/ML Total Protein (6.4-8.2) g/dL Albumin (3.4-5.0) g/dL Globulin (2.6-4.0) g/dL Albumin/Globulin Ratio (0.9-1.6) Triglycerides (0-200) mg/dL Cholesterol (50-200) mg/dL LDL Cholesterol, Calc (60-180) mg/dL VLDL Cholesterol (5-55) mg/dL HDL Cholesterol (40-60) mg/dL Cholesterol/HDL Ratio (3.3-6.0) TSH 3rd Generation (0.36-3.74) uIU/mL 07/24/19 07/24/19 07/24/19 Range/Units 05:55 05:55 05:55 WBC (4.0-11.0) K/uL RBC (4.50-5.90) M/uL Hgb (13.0-17.0) g/dL Hct (38.0-50.0) % MCV (80.0-98.0) fL MCH (27.0-32.0) pg MCHC (31.0-37.0) g/dL RDW Std Deviation (28.0-62.0) fl RDW Coeff of Sylvester (11.0-15.0) % Plt Count (150-400) K/uL MPV (7.40-12.00) fL Neut % (Auto) (48.0-80.0) % Lymph % (Auto) (16.0-40.0) % Barnes % (Auto) (0.0-15.0) % Eos % (Auto) (0.0-7.0) % Baso % (Auto) (0.0-1.5) % Neut # (Auto) (1.4-5.7) K/uL Lymph # (Auto) (0.6-2.4) K/uL Barnes # (Auto) (0.0-0.8) K/uL Eos # (Auto) (0.0-0.7) K/uL Baso # (Auto) (0.0-0.1) K/uL Nucleated RBC % /100WBC Nucleated RBCs # K/uL Sodium 141 (136-148) mmol/L Potassium 4.8 (3.5-5.1) mmol/L Chloride 103 (98-107) mmol/L Carbon Dioxide 32.0 (21.0-32.0) mmol/L BUN 24 H (7.0-18.0) mg/dL Creatinine 1.5 H (0.8-1.3) mg/dL Est Cr Clr Drug Dosing 56.30 mL/min Estimated GFR (MDRD) 59.1 ml/min Glucose 118 H (74-106) mg/dL Calcium 8.5 (8.5-10.1) mg/dL Magnesium 2.2 (1.8-2.4) mg/dL Total Bilirubin 1.1 H (0.2-1.0) mg/dL AST 38 H (15-37) IU/L ALT 42 (14-63) IU/L Alkaline Phosphatase 49 (46-116) U/L Troponin I 0.212 H* (0.000-0.056) ng/mL B-Natriuretic Peptide 706 H (<100) PG/ML Total Protein 6.0 L (6.4-8.2) g/dL Albumin 3.1 L (3.4-5.0) g/dL Globulin 2.9 (2.6-4.0) g/dL Albumin/Globulin Ratio 1.1 (0.9-1.6) Triglycerides (0-200) mg/dL Cholesterol (50-200) mg/dL LDL Cholesterol, Calc (60-180) mg/dL VLDL Cholesterol (5-55) mg/dL HDL Cholesterol (40-60) mg/dL Cholesterol/HDL Ratio (3.3-6.0) TSH 3rd Generation 0.55 (0.36-3.74) uIU/mL 07/24/19 Range/Units 05:55 WBC (4.0-11.0) K/uL RBC (4.50-5.90) M/uL Hgb (13.0-17.0) g/dL Hct (38.0-50.0) % MCV (80.0-98.0) fL MCH (27.0-32.0) pg MCHC (31.0-37.0) g/dL RDW Std Deviation (28.0-62.0) fl RDW Coeff of Sylvester (11.0-15.0) % Plt Count (150-400) K/uL MPV (7.40-12.00) fL Neut % (Auto) (48.0-80.0) % Lymph % (Auto) (16.0-40.0) % Barnes % (Auto) (0.0-15.0) % Eos % (Auto) (0.0-7.0) % Baso % (Auto) (0.0-1.5) % Neut # (Auto) (1.4-5.7) K/uL Lymph # (Auto) (0.6-2.4) K/uL Barnes # (Auto) (0.0-0.8) K/uL Eos # (Auto) (0.0-0.7) K/uL Baso # (Auto) (0.0-0.1) K/uL Nucleated RBC % /100WBC Nucleated RBCs # K/uL Sodium (136-148) mmol/L Potassium (3.5-5.1) mmol/L Chloride (98-107) mmol/L Carbon Dioxide (21.0-32.0) mmol/L BUN (7.0-18.0) mg/dL Creatinine (0.8-1.3) mg/dL Est Cr Clr Drug Dosing mL/min Estimated GFR (MDRD) ml/min Glucose (74-106) mg/dL Calcium (8.5-10.1) mg/dL Magnesium (1.8-2.4) mg/dL Total Bilirubin (0.2-1.0) mg/dL AST (15-37) IU/L ALT (14-63) IU/L Alkaline Phosphatase (46-116) U/L Troponin I (0.000-0.056) ng/mL B-Natriuretic Peptide (<100) PG/ML Total Protein (6.4-8.2) g/dL Albumin (3.4-5.0) g/dL Globulin (2.6-4.0) g/dL Albumin/Globulin Ratio (0.9-1.6) Triglycerides 69 (0-200) mg/dL Cholesterol 130 (50-200) mg/dL LDL Cholesterol, Calc 80 (60-180) mg/dL VLDL Cholesterol 13 (5-55) mg/dL HDL Cholesterol 36 L (40-60) mg/dL Cholesterol/HDL Ratio 3.6 (3.3-6.0) TSH 3rd Generation (0.36-3.74) uIU/mL Jamin Results Last 24 Hours: Microbiology 07/23/19 05:07 Aerobic Blood Culture - Preliminary Blood - Venous - Lab Draw NO GROWTH AFTER 1 DAY Anaerobic Blood Culture - Preliminary NO GROWTH AFTER 1 DAY 07/23/19 04:55 Aerobic Blood Culture - Preliminary Blood - Venous NO GROWTH AFTER 1 DAY Anaerobic Blood Culture - Preliminary NO GROWTH AFTER 1 DAY Med Orders - Current: Current Medications Albuterol (Proventil Neb Soln) 2.5 mg NEB Q2H PRN PRN Reason: Dyspnea Albuterol/Ipratropium (Duoneb 3.0-0.5 Mg/3 Ml) 3 ml NEB Q4HRRT [facility] [place] Last Admin: 07/24/19 13:32 Dose: 3 ml Aspirin (Aspirin) 81 mg PO DAILY [facility] [place] Last Admin: 07/24/19 08:52 Dose: 81 mg Atorvastatin Calcium (Lipitor) 10 mg PO BEDTIME [facility] Furosemide (Lasix) 40 mg IVPUSH BID [facility] [place] Last Admin: 07/24/19 08:52 Dose: 40 mg Heparin Sodium (Porcine) (Heparin Sodium) 5,000 units SUBCUT Q8H [facility] Hydralazine HCl (Apresoline) 50 mg PO Q8H [facility] [place] Last Admin: 07/24/19 09:04 Dose: 50 mg Metoprolol Succinate (Toprol Xl) 50 mg PO DAILY [facility] [place] Discontinued Medications Albuterol/Ipratropium (Duoneb 3.0-0.5 Mg/3 Ml) 3 ml NEB ONETIME ONE Stop: 07/23/19 04:39 Last Admin: 07/23/19 04:42 Dose: 3 ml Albuterol/Ipratropium (Duoneb 3.0-0.5 Mg/3 Ml) Confirm Administered Dose 3 ml .ROUTE .STK-MED ONE Stop: 07/23/19 04:36 Last Admin: 07/23/19 04:43 Dose: Not Given Albuterol/Ipratropium (Duoneb 3.0-0.5 Mg/3 Ml) 3 ml NEB ONETIME STA Stop: 07/23/19 08:09 Last Admin: 07/23/19 08:19 Dose: 3 ml Albuterol/Ipratropium (Duoneb 3.0-0.5 Mg/3 Ml) Confirm Administered Dose 3 ml .ROUTE .STK-MED ONE Stop: 07/23/19 08:16 Last Admin: 07/23/19 08:19 Dose: Not Given Aspirin (Aspirin) 324 mg PO ONETIME ONE Stop: 07/23/19 05:20 Last Admin: 07/23/19 05:29 Dose: 324 mg Enalaprilat (Vasotec Iv) 0.625 mg IVPUSH NOW STA Stop: 07/23/19 04:56 Last Admin: 07/23/19 05:00 Dose: 0.625 mg Enalaprilat (Vasotec Iv) 0.625 mg IVPUSH NOW STA Stop: 07/23/19 05:03 Last Admin: 07/23/19 05:00 Dose: Not Given Enoxaparin Sodium (Lovenox) 100 mg SUBCUT ONETIME ONE Stop: 07/23/19 05:20 Last Admin: 07/23/19 05:30 Dose: 100 mg Enoxaparin Sodium (Lovenox) 40 mg SUBCUT Q24H [facility] [place] Last Admin: 07/23/19 18:40 Dose: 40 mg Furosemide (Lasix) 40 mg IVPUSH NOW ONE Stop: 07/23/19 04:54 Last Admin: 07/23/19 05:01 Dose: 40 mg Sodium Chloride (Normal Saline) 1,000 mls @ 125 mls/hr IV STAT [facility] Last Admin: 07/23/19 04:42 Dose: 125 mls/hr Magnesium Sulfate 2 gm/ Premix 50 mls @ 25 mls/hr IV ONETIME ONE Stop: 07/23/19 19:28 Last Admin: 07/23/19 17:53 Dose: 25 mls/hr Lorazepam (Ativan) 1 mg IVPUSH ONETIME ONE Stop: 07/23/19 04:55 Last Admin: 07/23/19 05:01 Dose: 1 mg Methylprednisolone Sodium Succinate (Solu-Medrol) Confirm Administered Dose 125 mg .ROUTE .STK-MED ONE Stop: 07/23/19 04:37 Last Admin: 07/23/19 04:43 Dose: Not Given Methylprednisolone Sodium Succinate (Solu-Medrol) 125 mg IVPUSH ONETIME ONE Stop: 07/23/19 04:44 Last Admin: 07/23/19 04:44 Dose: 125 mg Methylprednisolone Sodium Succinate (Solu-Medrol) 125 mg IVPUSH ONETIME ONE Stop: 07/23/19 05:23 Last Admin: 07/23/19 05:30 Dose: 125 mg Methylprednisolone Sodium Succinate (Solu-Medrol) 125 mg IVPUSH DAILY ELEN Last Admin: 07/24/19 09:05 Dose: 125 mg - Problem List & Annotations (1) Acute diastolic (congestive) heart failure SNOMED Code(s): 925142826, 396886566 Code(s): I50.31 - ACUTE DIASTOLIC (CONGESTIVE) HEART FAILURE Status: Acute Current Visit: Yes (2) Renal insufficiency SNOMED Code(s): 747973884, 232656235 Code(s): N28.9 - DISORDER OF KIDNEY AND URETER, UNSPECIFIED Status: Acute Current Visit: No (3) Aortic regurgitation SNOMED Code(s): 51500984 Code(s): I35.1 - NONRHEUMATIC AORTIC (VALVE) INSUFFICIENCY Status: Acute Current Visit: Yes - My Orders Last 24 Hours: My Active Orders 07/24/19 21:00 atorvaSTATin [Lipitor] 10 mg PO BEDTIME 07/25/19 05:00 GLYCOSYLATED HEMOGLOBIN,HGBA1C [CHEM] Routine 07/25/19 09:00 Metoprolol Succinate [Toprol XL] 50 mg PO DAILY - Plan Plan:: Patient has been seen and examined by me along with resident Dr Higgins, I have discussed the case with the resident and agree wth his findings and plan as documented: CHF exacerbation likely sec to non-compliance to meds Cont Lasix 40mg BID Monitor ins and outs Fluid restriction Troponin treading down, no chest pain, likely tyoe 2 leak Was counselled about non-compliance in detail likely dc in AM
[2019-07-24] MEDS ORDERED: atorvaSTATin 10 MG Tab PO SCH (21:00)
[2019-07-24] MEDS: Heparin Sodium 5,000 Units/ML Vial SUBCUT SCH (21:29)
[2019-07-25] MEDS: hydrALAZINE 25 MG Tab PO SCH ×2 (00:09→10:02)
[2019-07-25] MEDS: Albuterol/Ipratropium 3.0-0.5 MG/3 ML Neb Soln NEB SCH ×4 (02:58→17:09)
[2019-07-25] MEDS: Heparin Sodium 5,000 Units/ML Vial SUBCUT SCH ×2 (05:53→17:09)
[2019-07-25 06:31] LABS: BLOOD UREA NITROGEN,BUN 29 mg/dL (7.0-18.0); CARBON DIOXIDE,CO2 32.5 mmol/L (21.0-32.0); CHLORIDE,CL 102 mmol/L (98-107); GLUCOSE RANDOM 95 mg/dL (74-106); POTASSIUM,K 4.2 mmol/L (3.5-5.1); SODIUM,NA 142 mmol/L (136-148)
[2019-07-25 06:41] LABS: HEMOGLOBIN A1C 5.7 % (4.5-6.2)
[2019-07-25] MEDS ORDERED: Metoprolol Succinate 50 MG Tab.ER PO SCH (09:00)
[2019-07-25] MEDS: Aspirin 81 MG Tab.Chew PO SCH (10:03)
[2019-07-25] MEDS: Furosemide 40 MG/4 ML VIAL IVPUSH SCH (10:03)
--- NOTE | 2019-07-25 11:39 | PCM.DCSUM1 ---
Discharge Summary - Hospital Course Free Text/Narrative:: 53 y/o male with history of CHF, hypertension who presented to the ER complaining of shortness of breath and anxiety. His chest xray showed vascular congestion and cardiomegaly. He was given lasix IV once and Ativan IV once in the ER for anxiety. In addition, initial troponin was mildly elevated 0.3. Patient denying and chest pain. EKG did not show any ST changes.He stated that he was recently seen in [place] at [facility] about 2 weeks ago for similar complaint and was later discharged home on Lasix and other meds, he stopped taking meds once they ran out. Patient was admitted to ICU for management of CHF. Patients troponins were flat. He continued to receive IV Lasix untill he was euvolemic. Ambulatory pulse oxy was 95%. His ECHO showed normal EF and moderate AI. Patient was discharged home on Lasix and recommended to f/u with PCP and cariology on outpatient basis. Patient was also counseled about medication compliance in detail and was provided with resources to reach out to obtain health insurance.. Diagnosis: Stroke: No - Discharge Data Discharge Date: 07/25/19 Discharge Disposition: Home, Self-Care 01 Condition: Stable - Referral to Home Health Primary Care Physician: PCP None - Discharge Diagnosis/Problem(s) (1) Acute diastolic (congestive) heart failure SNOMED Code(s): 065951700, 692314172 ICD Code: I50.31 - ACUTE DIASTOLIC (CONGESTIVE) HEART FAILURE Status: Acute (2) Renal insufficiency SNOMED Code(s): 284086698, 446400176 ICD Code: N28.9 - DISORDER OF KIDNEY AND URETER, UNSPECIFIED Status: Acute (3) Aortic regurgitation SNOMED Code(s): 95208403 ICD Code: I35.1 - NONRHEUMATIC AORTIC (VALVE) INSUFFICIENCY Status: Acute - Patient Summary/Data Consults: Consultations 07/24/19 11:02 Consult to Window Machine Operator [CONS] Routine - Patient Instructions Diet: Heart Healthy Diet Fluid Restriction: 1000 mL Activity: As Tolerated Driving: May Drive Today Showering/Bathing: May Shower - Discharge Plan *PRESCRIPTION DRUG MONITORING PROGRAM REVIEWED*: Not Applicable *COPY OF PRESCRIPTION DRUG MONITORING REPORT IN PATIENT RONY: Not Applicable Prescriptions/Med Rec: Albuterol Sulfate [Proventil Hfa] 6.7 gm IH DAILY PRN #1 hfa.aer.ad PRN Reason: Shortness Of Breath Albuterol/Ipratropium [DuoNeb 3.0-0.5 MG/3 ML] 3 ml .XX BID PRN #14 neb PRN Reason: Shortness Of Breath Aspirin 81 mg PO DAILY #30 tab.chew atorvaSTATin [Lipitor] 10 mg PO BEDTIME #30 tablet Furosemide 40 mg PO BID #60 tablet hydrALAZINE [Apresoline] 50 mg PO Q8H 30 Days #90 tablet Lisinopril 5 mg PO DAILY 30 Days #30 tablet Metoprolol Succinate 50 mg PO DAILY #30 tab.er.24h Home Medications: Home Meds Meloxicam 7.5 mg PO DAILY 07/23/19 [History] Aspirin 81 mg PO DAILY #30 tab.chew 07/24/19 [Rx] Furosemide 40 mg PO BID #60 tablet 07/24/19 [Rx] Lisinopril 5 mg PO DAILY 30 Days #30 tablet 07/24/19 [Rx] Metoprolol Succinate 50 mg PO DAILY #30 tab.er.24h 07/24/19 [Rx] atorvaSTATin [Lipitor] 10 mg PO BEDTIME #30 tablet 07/24/19 [Rx] hydrALAZINE [Apresoline] 50 mg PO Q8H 30 Days #90 tablet 07/24/19 [Rx] Albuterol Sulfate [Proventil Hfa] 6.7 gm IH DAILY PRN #1 hfa.aer.ad 07/25/19 [Rx ] Albuterol/Ipratropium [DuoNeb 3.0-0.5 MG/3 ML] 3 ml .XX BID PRN #14 neb [Rx] Oxygen Therapy Mode: Room Air Patient Handouts: Hydralazine tablets, Furosemide tablets, Metoprolol tablets, Atorvastatin tablets, Lisinopril tablets, Heart Failure, [id number], Aspirin capsules or tablets extended release Referrals: [facility] [Outside] - Discharge Summary/Plan Comment DC Time >30 min.: Yes Discharge Summary/Plan Comment: 53 y/o male with history of CHF, hypertension who presented to the ER complaining of shortness of breath and anxiety. His chest xray showed vascular congestion and cardiomegaly. He was given lasix IV once and Ativan IV once in the ER for anxiety. In addition, initial troponin was mildly elevated 0.3. Patient denying and chest pain. EKG did not show any ST changes.He stated that he was recently seen in [place] at [facility] about 2 weeks ago for similar complaint and was later discharged home on Lasix and other meds, he stopped taking meds once they ran out. Patient was admitted to ICU for management of CHF. Patients troponins were flat. He continued to receive IV Lasix untill he was euvolemic. Ambulatory pulse oxy was 95%. His ECHO showed normal EF and moderate AI. Patient was discharged home on Lasix and other cardiac regimen meds and recommended to f/u with PCP and cariology on outpatient basis. Patient was also counseled about medication compliance in detail and was provided with resources to reach out to obtain health insurance.. - Patient Data Vitals - Most Recent: Last Vital Signs Temp 36.1 C 07/25/19 07:46 Pulse 73 07/25/19 10:03 Resp 18 07/25/19 07:46 BP 138/96 H 07/25/19 10:03 Pulse Ox 93 L 07/25/19 07:46 Weight - Most Recent: 104.5 kg I&O - Last 24 hours: Intake & Output 07/24/19 07/25/19 07/25/19 22:59 06:59 14:59 Intake Total 900 600 Output Total 1575 1400 Balance -675 -800 Lab Results - Last 24 hrs: Laboratory Results - last 24 hr 07/24/19 07/25/19 07/25/19 Range/Units 16:30 06:00 06:00 WBC 15.10 H (4.0-11.0) K/uL RBC 6.46 H (4.50-5.90) M/uL Hgb 17.6 H (13.0-17.0) g/dL Hct 54.2 H (38.0-50.0) % MCV 83.9 (80.0-98.0) fL MCH 27.2 (27.0-32.0) pg MCHC 32.5 (31.0-37.0) g/dL RDW Std Deviation 50.8 (28.0-62.0) fl RDW Coeff of Sylvester 17 H (11.0-15.0) % Plt Count 240 (150-400) K/uL MPV 10.50 (7.40-12.00) fL Nucleated RBC % 0.0 /100WBC Nucleated RBCs # 0 K/uL Sodium (136-148) mmol/L Potassium (3.5-5.1) mmol/L Chloride (98-107) mmol/L Carbon Dioxide (21.0-32.0) mmol/L BUN (7.0-18.0) mg/dL Creatinine (0.8-1.3) mg/dL Est Cr Clr Drug Dosing mL/min Estimated GFR (MDRD) ml/min Glucose (74-106) mg/dL Hemoglobin A1c 5.7 (4.5-6.2) % Calcium (8.5-10.1) mg/dL B-Natriuretic Peptide 313 H (<100) PG/ML 07/25/19 Range/Units 06:00 WBC (4.0-11.0) K/uL RBC (4.50-5.90) M/uL Hgb (13.0-17.0) g/dL Hct (38.0-50.0) % MCV (80.0-98.0) fL MCH (27.0-32.0) pg MCHC (31.0-37.0) g/dL RDW Std Deviation (28.0-62.0) fl RDW Coeff of Sylvester (11.0-15.0) % Plt Count (150-400) K/uL MPV (7.40-12.00) fL Nucleated RBC % /100WBC Nucleated RBCs # K/uL Sodium 142 (136-148) mmol/L Potassium 4.2 (3.5-5.1) mmol/L Chloride 102 (98-107) mmol/L Carbon Dioxide 32.5 H (21.0-32.0) mmol/L BUN 29 H (7.0-18.0) mg/dL Creatinine 1.4 H (0.8-1.3) mg/dL Est Cr Clr Drug Dosing 60.12 mL/min Estimated GFR (MDRD) > 60.0 ml/min Glucose 95 (74-106) mg/dL Hemoglobin A1c (4.5-6.2) % Calcium 8.6 (8.5-10.1) mg/dL B-Natriuretic Peptide (<100) PG/ML CHUCKIE Results - Last 24 hrs: Microbiology 07/23/19 05:07 Aerobic Blood Culture - Preliminary Blood - Venous - Lab Draw NO GROWTH AFTER 2 DAYS Anaerobic Blood Culture - Preliminary NO GROWTH AFTER 2 DAYS 07/23/19 04:55 Aerobic Blood Culture - Preliminary Blood - Venous NO GROWTH AFTER 2 DAYS Anaerobic Blood Culture - Preliminary NO GROWTH AFTER 2 DAYS Med Orders - Current: Current Medications Albuterol (Proventil Neb Soln) 2.5 mg NEB Q2H PRN PRN Reason: Dyspnea Albuterol/Ipratropium (Duoneb 3.0-0.5 Mg/3 Ml) 3 ml NEB Q4HRRT [facility] Last Admin: 07/25/19 10:22 Dose: 3 ml Aspirin (Aspirin) 81 mg PO DAILY [facility] Last Admin: 07/25/19 10:03 Dose: 81 mg Atorvastatin Calcium (Lipitor) 10 mg PO BEDTIME [facility] Last Admin: 07/24/19 21:29 Dose: 10 mg Furosemide (Lasix) 40 mg IVPUSH BID [facility] Last Admin: 07/25/19 10:03 Dose: 40 mg Heparin Sodium (Porcine) (Heparin Sodium) 5,000 units SUBCUT Q8H [facility] Last Admin: 07/25/19 05:53 Dose: 5,000 units Hydralazine HCl (Apresoline) 50 mg PO Q8H [facility] Last Admin: 07/25/19 10:02 Dose: 50 mg Metoprolol Succinate (Toprol Xl) 50 mg PO DAILY [facility] Last Admin: 07/25/19 10:03 Dose: 50 mg Discontinued Medications Albuterol/Ipratropium (Duoneb 3.0-0.5 Mg/3 Ml) 3 ml NEB ONETIME ONE Stop: 07/23/19 04:39 Last Admin: 07/23/19 04:42 Dose: 3 ml Albuterol/Ipratropium (Duoneb 3.0-0.5 Mg/3 Ml) Confirm Administered Dose 3 ml .ROUTE .STK-MED ONE Stop: 07/23/19 04:36 Last Admin: 07/23/19 04:43 Dose: Not Given Albuterol/Ipratropium (Duoneb 3.0-0.5 Mg/3 Ml) 3 ml NEB ONETIME STA Stop: 07/23/19 08:09 Last Admin: 07/23/19 08:19 Dose: 3 ml Albuterol/Ipratropium (Duoneb 3.0-0.5 Mg/3 Ml) Confirm Administered Dose 3 ml .ROUTE .STK-MED ONE Stop: 07/23/19 08:16 Last Admin: 07/23/19 08:19 Dose: Not Given Aspirin (Aspirin) 324 mg PO ONETIME ONE Stop: 07/23/19 05:20 Last Admin: 07/23/19 05:29 Dose: 324 mg Enalaprilat (Vasotec Iv) 0.625 mg IVPUSH NOW STA Stop: 07/23/19 04:56 Last Admin: 07/23/19 05:00 Dose: 0.625 mg Enalaprilat (Vasotec Iv) 0.625 mg IVPUSH NOW STA Stop: 07/23/19 05:03 Last Admin: 07/23/19 05:00 Dose: Not Given Enoxaparin Sodium (Lovenox) 100 mg SUBCUT ONETIME ONE Stop: 07/23/19 05:20 Last Admin: 07/23/19 05:30 Dose: 100 mg Enoxaparin Sodium (Lovenox) 40 mg SUBCUT Q24H [facility] Last Admin: 07/23/19 18:40 Dose: 40 mg Furosemide (Lasix) 40 mg IVPUSH NOW ONE Stop: 07/23/19 04:54 Last Admin: 07/23/19 05:01 Dose: 40 mg Sodium Chloride (Normal Saline) 1,000 mls @ 125 mls/hr IV STAT [facility] Last Admin: 07/23/19 04:42 Dose: 125 mls/hr Magnesium Sulfate 2 gm/ Premix 50 mls @ 25 mls/hr IV ONETIME ONE Stop: 07/23/19 19:28 Last Admin: 07/23/19 17:53 Dose: 25 mls/hr Lorazepam (Ativan) 1 mg IVPUSH ONETIME ONE Stop: 07/23/19 04:55 Last Admin: 07/23/19 05:01 Dose: 1 mg Methylprednisolone Sodium Succinate (Solu-Medrol) Confirm Administered Dose 125 mg .ROUTE .STK-MED ONE Stop: 07/23/19 04:37 Last Admin: 07/23/19 04:43 Dose: Not Given Methylprednisolone Sodium Succinate (Solu-Medrol) 125 mg IVPUSH ONETIME ONE Stop: 07/23/19 04:44 Last Admin: 07/23/19 04:44 Dose: 125 mg Methylprednisolone Sodium Succinate (Solu-Medrol) 125 mg IVPUSH ONETIME ONE Stop: 07/23/19 05:23 Last Admin: 07/23/19 05:30 Dose: 125 mg Methylprednisolone Sodium Succinate (Solu-Medrol) 125 mg IVPUSH DAILY [facility] Last Admin: 07/24/19 09:05 Dose: 125 mg
--- NOTE | 2019-07-28 13:39 | ECHO ---
EXAM DATE: 07/23/19 PATIENT'S AGE: 53 The echocardiogram report can be seen in this patient's EMR (Electronic Medical Record) in the Reports section. The report has also been scanned into PACs. [place]
== END 2019-07-25 15:00 | disposition home or self-care (01) | DRG 291 ==
LOC: MW.ED 04:22 → MW.MS 05:29 → MW.ICU 09:00 → MW.MS 07-24 15:34
PROVIDERS: ADMIT Internal Medicine; ATTEND Internal Medicine
DX: I11.0 Hypertensive heart disease with heart failure (principal); J96.01 Acute respiratory failure with hypoxia; G93.41 Metabolic encephalopathy; I50.33 Acute on chronic diastolic (congestive) heart failure; N28.9 Disorder of kidney and ureter, unspecified; F41.9 Anxiety disorder, unspecified; I35.1 Nonrheumatic aortic (valve) insufficiency; Z79.82 Long term (current) use of aspirin; Z79.899 Other long term (current) drug therapy; Z91.14 Patient's other noncompliance with medication regimen
CPT/HCPCS: 36415; 36600; 71045; 71045-26; 71250; 71250-26; 74150; 74150-26; 80048; 80053; 80061; 80305-QW; 81003; 82803; 83036; 83735; 83880; 84443; 84484; 85025; 85027; 87040; 93005; 93306; 94640; 96361; 96372; 96374; 96375; 99284; 99285-25; A9270-GY; J1644; J1650; J1940; J2060; J2930; J3475; J7040; J7620-GY